=== PATIENT | male | born 2000 | race African-American/Black ===

== ENCOUNTER 2024-09-01 02:56 | Emergency (ER) | payer OTHER ==
[2024-09-01] MEDS ORDERED: KETOROLAC 30 MG/ML INJ ONE (03:35)
[2024-09-01] MEDS ORDERED: ONDANSETRON 4 MG/2 ML VIAL ONE (03:35)
[2024-09-01] MEDS ORDERED: NA CHLORIDE 0.9% 1,000 ML ONE (03:36)
[2024-09-01] MEDS ORDERED: MORPHINE 4 MG/ML SYR ONE (03:36)
[2024-09-01 03:38] LABS: Absolute Basophils 0.2 K/uL (0-0.5); Absolute Eosinophils 0.3 K/uL (0-0.5); Absolute Lymphocytes (CBC) 3.3 K/uL (0.7-4.9); Absolute Monocytes 0.7 K/uL (0.1-1.3); Absolute Neutrophil 5.1 K/uL (1.8-8.0); Basophils % 2.5 % (0-1.3); Eosinophils % 2.8 % (0-4.4); Hematocrit 38.3 % (39.6-49.0); Hemoglobin 12.8 g/dL (13.6-17.9); Lymphocytes % 33.9 % (15.3-44.8); MCH 29.3 pg (27.0-35.0); MCHC 33.4 g/dL (32.0-36.0); MCV 87.9 fL (80-100); MPV 6.5 fL (7.6-11.3); Monocytes % 7.2 % (3.3-12.3); Neutrophils % 53.6 % (41.7-73.7); Nucleated Red Blood Cells % 0.2 % (0-0); Platelets 425 thou/uL (152-406); RBC Red Blood Cell Count 4.36 M/uL (4.33-5.43); Red Cell Distribution Width 13.8 % (12.1-15.2)
[2024-09-01 04:00] LABS: Albumin 3.9 g/dL (3.4-5.0); Albumin/Globulin Ratio 0.9 (1.1-1.8); Alkaline Phosphatase 54 U/L (45-117); Anion Gap 7.9 mEq/L (5.0-15.0); BUN Blood Urea Nitrogen 14 mg/dL (7-18); Bicarbonate 30 mEq/L (21-32); Bilirubin Total 0.3 mg/dL (0.2-1.0); Globulin 4.2 g/dL (2.3-3.5); Glomerular Filtration Rate 95 ml/min (=/>90); Glucose Level 75 mg/dL (74-106); Lipase 23 U/L (13-75); Protein, Total 8.1 g/dL (6.4-8.2); Sodium Level 137 mEq/L (136-145)
[2024-09-01 04:01] LABS: ALT/SGPT < 14 U/L (16-61); AST/SGOT 19 U/L (15-37); Potassium 3.9 mEq/L (3.5-5.1)
[2024-09-01 04:57] LABS: Specific Gravity 1.012 (1.005-1.030); Sqamous Epithelial None Seen /HPF (None Seen); Urine Bacteria None Seen /HPF (<20); Urine Bilirubin NEGATIVE (Negative); Urine Blood 3+ (Negative); Urine Clarity Extremely Turbid (Clear); Urine Color Light-Yellow (Yellow); Urine Crystals Unidentified Few /HPF (None Seen); Urine Culture Reflex Order REFLEXED; Urine Glucose NEGATIVE (Negative); Urine Ketones NEGATIVE (Negative); Urine Microscopic Reflex YN ORDER UMIC; Urine Mucus Slight /HPF (None Seen); Urine Nitrite NEGATIVE (Negative); Urine Protein 1+ (Negative); Urine RBC >50 /HPF (None Seen); Urine Urobilinogen Normal (Normal); Urine WBC 20-50 /HPF (<5)
--- NOTE | 2024-09-01 05:39 | RAD REPORT ---
CT ABDOMEN PELVIS WITHOUT IV CONTRAST CLINICAL INDICATION: Left flank pain, stent, stone COMPARISON: None TECHNIQUE: CT images of the abdomen and pelvis obtained without contrast. Multiplanar reformats were provided. Dose-optimization techniques such as automated exposure control, iterative reconstruction, and mA and/or kV adjustment for patient size was utilized for this examination. FINDINGS: LOWER CHEST: Unremarkable. LIVER: Unremarkable. BILIARY: Unremarkable. PANCREAS: Unremarkable. SPLEEN: Unremarkable. ADRENALS: Unremarkable. KIDNEYS/URETERS: Left ureteral stent with the pigtail catheter terminate in the proximal ureter and u rinary bladder. There is a 6 mm calculus at the left renal pelvis with associated mild to moderate left hydronephrosis. No significant perinephric stranding. Right kidney is unremarkable. BOWEL/STOMACH: Unremarkable. APPENDIX: Appendix is not definitively visualized. No focal inflammation in right lower quadrant to s uggest acute appendicitis. MESENTERY/PERITONEUM: Unremarkable. RETROPERITONEUM: No adenopathy. URINARY BLADDER: Urinary bladder is distended. REPRODUCTIVE: Unremarkable. VASCULAR: Unremarkable. ABDOMINAL/PELVIC WALL: Unremarkable. BONES: Unremarkable. IMPRESSION: 1. 6 mm obstructive stone at left renal pelvis with associated mild to moderate left hydronephrosis . 2. Low-lying left ureteral stent with the proximal pigtail catheter terminating in the proximal ure ter. 3. Distended urinary bladder. Electronically signed by: Carlie Corcoran MD 09/01/2024 05:32 AM [facility] Due to temporary technical issues with the PACS/ReClaims reporting system, reports are being essie d by the in-house radiologist without review as a courtesy to ensure prompt reporting the interpreting radiologist is fully responsible for the content of the report. Transcribed Date/Time: 09/01/2024 5:39 AM
--- NOTE | 2024-09-01 05:41 | ER ---
Nurse's Notes [facility] Name: Sina Singh Age: 23 yrs Sex: Male : 2000 Arrival Date: 09/01/2024 Time: 02:56 Bed 5 Private MD: Diagnosis: Calculus of kidney Presentation: 09/01 03:00 Chief complaint: Parent and/or Guardian states: HAS A KIDNEY STONE OF 7 MM , HAD A ha1 STENT PLACED ON THE LEFT SIDE ONE WEEK AGO, AND HAS SCHEDULE FOR REMOVAL OF STONE ON THE 17 OF THIS MONTH. Coronavirus screen: Vaccine status: Patient reports receiving the 1st dose of the Covid vaccine. MODERNA. Ebola Screen: No symptoms or risks identified at this time. Initial Sepsis Screen: Does the patient meet any 2 criteria? No. Patient's initial sepsis screen is negative. Does the patient have a suspected source of infection? No. Patient's initial sepsis screen is negative. Risk Assessment: Do you want to hurt yourself or someone else? Patient reports no desire to harm self or others. Onset of symptoms was September 01, 2024. 03:00 Method Of Arrival: Wheelchair ha1 03:00 Acuity: KEI 3 ha1 Historical: - Allergies: 03:37 No Known Allergies; ha1 - PMHx: 03:37 Kidney stone; ha1 - Immunization history:: Adult Immunizations up to date. - Infectious Disease History:: Denies. - Social history:: Smoking status: Patient uses street drugs, marijuana. Screenin:45 [facility] ED Fall Risk Assessment (Adult) History of falling in the last 3 months, dd2 including since admission No falls in past 3 months (0 pts) Confusion or Disorientation No (0 pts) Intoxicated or Sedated No (0 pts) Impaired Gait No (0 pts) Mobility Assist Device Used No (0 pt) Altered Elimination No (0 pt) Score/Fall Risk Level 0 - 2 = Low Risk Oriented to surroundings, Maintained a safe environment, Hourly rounding (assess needs \T\ fall precautionary measures) done. Abuse screen: Denies threats or abuse. Nutritional screening: No deficits noted. Tuberculosis screening: No symptoms or risk factors identified. Assessment: 03:40 General: Appears uncomfortable, Behavior is cooperative, appropriate for age. Pain: dd2 Complains of pain in posterior aspect of left lateral abdomen Pain currently is 10 out of 10 on a pain scale. Pain began suddenly. Neuro: Level of Consciousness is awake, alert, obeys commands, Oriented to person, place, time, situation, Appropriate for age. Cardiovascular: Patient's skin is warm and dry. Respiratory: Airway is patent Respiratory effort is even, unlabored, Respiratory pattern is regular, symmetrical. GI: Abdomen is flat, Bowel sounds present X 4 quads. Abd is soft and non tender X 4 quads. : Bladder is distended Reports pain in left flank(s), Pain is 10 out of 10 on a pain scale. EENT: No deficits noted. No signs and/or symptoms were reported regarding the EENT system. Derm: No deficits noted. No signs and/or symptoms reported regarding the dermatologic system. Musculoskeletal: No deficits noted. No signs and/or symptoms reported regarding the musculoskeletal system. Vital Signs: 03:00 BP 108 / 79; Pulse 57; Resp 18 S; Temp 97.6(T); Pulse Ox 100% on R/A; Weight 58.97 kg; ha1 Height 6 ft. 0 in. ; 03:46 BP 111 / 74; Pulse 62; Resp 17; Pulse Ox 99% ; dd2 04:34 BP 109 / 71; Pulse 59; Resp 15; Pulse Ox 99% ; dd2 06:15 BP 114 / 68; Pulse 58; Resp 15; Pulse Ox 100% ; dd2 03:00 Body Mass Index 17.63 (58.97 kg, 182.88 cm) ha1 ED Course: 02:56 Patient arrived in ED. ec2 02:57 Maco Long MD is Attending Physician. ec2 03:26 ARELIS DU, BHAVANA is Primary Nurse. dd2 03:37 Triage completed. ha1 03:45 No provider procedures requiring assistance completed. Initial lab(s) drawn, by md, dd2 sent to lab. Inserted saline lock: 20 gauge in right antecubital area, using aseptic technique. Blood collected. Flushed with 10 mL NS. 03:45 Patient has correct armband on for positive identification. Bed in low position. Call dd2 light in reach. Side rails up X2. Provided Education on: CALL LIGHT, MEDICATION, LABS/PROCEDURES, RESULT TIMES. Client placed on continuous cardiac and pulse oximetry monitoring. NIBP monitoring applied. Door closed. Noise minimized. Warm blanket given. Pillow given. Verbal reassurance given. 03:59 CT Abd/Pelvis - Without Contrast In Process Unspecified. EDMS 04:46 Urinalysis w/ reflexes Sent. dd2 06:15 IV discontinued, intact, bleeding controlled, No redness/swelling at site. Pressure dd2 dressing applied. 06:16 Arm band placed on Patient placed in an exam room, on a stretcher, on pulse oximetry. dd2 Administered Medications: 03:44 Drug: NS 0.9% IV 1000 ml IV at 1 bolus Per protocol; 1000 mL bolus Route: IV; Rate: 1 dd2 bolus; Site: right antecubital; 03:59 Follow up: Response: No adverse reaction dd2 04:44 Follow up: IV Status: Completed infusion; IV Intake: 1000ml dd2 03:44 Drug: TORadol - Ketorolac IVP 15 mg IVP once Route: IVP; Site: right antecubital; dd2 03:59 Follow up: Response: No adverse reaction dd2 03:44 Drug: Ondansetron IVP 4 mg IVP once; over 2 minutes Route: IVP; Site: right antecubital;dd2 03:59 Follow up: Response: No adverse reaction dd2 03:44 Drug: morphine IVP or IV 4 mg IVP once over 4 mins Route: IVP; Infused Over: 4 mins; dd2 Site: right antecubital; 03:59 Follow up: Response: No adverse reaction dd2 Medication: 03:45 VIS not applicable for this client. dd2 Intake: 04:44 IV: 1000ml; Total: 1000ml. dd2 Outcome: 05:40 Discharge ordered by . ec2 06:15 Discharged to home ambulatory, dd2 06:15 Condition: stable 06:15 Discharge instructions given to patient, Instructed on discharge instructions, follow up and referral plans. Demonstrated understanding of instructions, follow-up care, 06:16 Patient left the ED. dd2 Signatures: Dispatcher [employer] Kayce Patterson, RN RN ha1 Maco Long MD MD ec2 ARELIS DU RN RN dd2 Corrections: (The following items were deleted from the chart) 06:15 04:34 BP 114 / 68; Pulse 58bpm; Resp 15bpm; Pulse Ox 100%; dd2 dd2
--- NOTE | 2024-09-01 05:41 | EDPHYS ---
Physician Documentation [facility] Name: Sina Singh Age: 23 yrs Sex: Male : 2000 Arrival Date: 09/01/2024 Time: 02:56 Bed 5 Private MD: ED Physician Maco Long HPI: 09/01 03:24 This 23 yrs old Black Male presents to ER via Unassigned with complaints of Possible ec2 Kidney Stone. 03:24 Patient arrives today d/t concern for flank pain. Patient w/ known hx of kidney stone, ec2 patient with stent in place, arrives today for left-sided flank pain. Some nausea.. Historical: - Allergies: 03:37 No Known Allergies; ha1 - PMHx: 03:37 Kidney stone; ha1 - Immunization history:: Adult Immunizations up to date. - Infectious Disease History:: Denies. - Social history:: Smoking status: Patient uses street drugs, marijuana. ROS: 03:24 Constitutional: as per hpi ec2 Exam: 03:24 Constitutional: GEN: NAD Head: atraumatic Eyes: EOMI Ears: External ears are ec2 normal. CV: regular rate LUNGS: no respiratory distress ABD: non-distended, soft, tender in the left abdomen, left CVA TTP. SKIN: no evidence of rashes MSK: no evidence of trauma Vital Signs: 03:00 BP 108 / 79; Pulse 57; Resp 18 S; Temp 97.6(T); Pulse Ox 100% on R/A; Weight 58.97 kg; ha1 Height 6 ft. 0 in. ; 03:46 BP 111 / 74; Pulse 62; Resp 17; Pulse Ox 99% ; dd2 04:34 BP 109 / 71; Pulse 59; Resp 15; Pulse Ox 99% ; dd2 06:15 BP 114 / 68; Pulse 58; Resp 15; Pulse Ox 100% ; dd2 03:00 Body Mass Index 17.63 (58.97 kg, 182.88 cm) ha1 MDM: 03:02 Patient medically screened. ec2 03:24 Data reviewed: vital signs. ED course: Patient arrives today for left flank pain. ec2 Examination remarkable for well-appearing nontoxic individual who has a tender abdomen as above. Will obtain lab work, CT imaging and treat the patient's pain. Differential includes ureteral stone, UTI.. 04:59 ED course: CBC is reassuring. Metabolic profile with appropriate electrolytes and renal ec2 function. Urine shows leukoesterase as well as WBCs and RBCs. Lipase within normal ranges. . 05:39 ED course: CT shows 6 mm obstructing stone at the left renal pelvis ureteral stent in ec2 place. On reassessment patient with marked improvement in pain. Patient is coming from [place] and intends to return home this morning. Will discharge home and have him follow-up with urology. Return precautions given.. 09/01 03:24 Order name: CBC with Diff; Complete Time: 04:58 ec2 09/01 03:24 Order name: CMP; Complete Time: 04:58 ec2 09/01 03:24 Order name: Lipase; Complete Time: 04:58 ec2 09/01 03:24 Order name: Urinalysis w/ reflexes; Complete Time: 04:58 ec2 09/01 05:00 Order name: Urine Culture EDMS 09/01 03:24 Order name: CT Abd/Pelvis - Without Contrast ec2 09/01 03:24 Order name: IV Saline Lock; Complete Time: 03:44 ec2 09/01 03:24 Order name: Labs collected and sent; Complete Time: 03:44 ec2 Administered Medications: 03:44 Drug: NS 0.9% IV 1000 ml IV at 1 bolus Per protocol; 1000 mL bolus Route: IV; Rate: 1 dd2 bolus; Site: right antecubital; 03:59 Follow up: Response: No adverse reaction dd2 04:44 Follow up: IV Status: Completed infusion; IV Intake: 1000ml dd2 03:44 Drug: TORadol - Ketorolac IVP 15 mg IVP once Route: IVP; Site: right antecubital; dd2 03:59 Follow up: Response: No adverse reaction dd2 03:44 Drug: Ondansetron IVP 4 mg IVP once; over 2 minutes Route: IVP; Site: right antecubital;dd2 03:59 Follow up: Response: No adverse reaction dd2 03:44 Drug: morphine IVP or IV 4 mg IVP once over 4 mins Route: IVP; Infused Over: 4 mins; dd2 Site: right antecubital; 03:59 Follow up: Response: No adverse reaction dd2 Disposition Summary: 09/01/24 05:40 Discharge Ordered Notes: Location: Home ec2 Condition: Stable ec2 Diagnosis - Calculus of kidney ec2 Followup: ec2 - With: Private Physician - When: - Reason: Recheck today's complaints Discharge Instructions: - Discharge Summary Sheet ec2 - Kidney Stones ec2 Forms: - Medication Reconciliation Form ec2 - Antibiotic Education ec2 - Prescription Opioid Use ec2 - Patient Portal Instructions ec2 - Leadership Thank You Letter ec2 Signatures: Dispatcher [employer] Kayce Patterson, RN RN ha1 Maco Long MD MD ec2 ARELIS DU RN RN dd2 Corrections: (The following items were deleted from the chart) 03:24 03:24 CBC+H.LAB.BRZ ordered. EDMS EDMS 03:24 03:24 COMPREHENSIVE METABOLIC PANEL+C.LAB.BRZ ordered. EDMS EDMS 03:24 03:24 LIPASE+C.LAB.BRZ ordered. EDMS EDMS 03:24 03:24 Urinalysis+U.LAB.BRZ ordered. EDMS EDMS 03:25 03:24 Abdomen Pelvis Wo Con+CT.RAD.BRZ ordered. EDMS EDMS
[2024-09-01 06:26] VITALS: TEMP 97.6
[2024-09-01 06:30] VITALS: BP 114/68; O2SAT 100
== END 2024-09-01 06:16 | disposition home or self-care (01) ==
LOC: ER 02:56
DX: N20.0 Calculus of kidney (principal); Z87.442 Personal history of urinary calculi
CPT/HCPCS: 96361; 87088; 85025; 81001; 87086; 36415; 83690; 80053; 74176; 96375; 96374; 99284; J2405; J7030